=== PATIENT | female | born 1930 | race Two or more races ===

== ENCOUNTER 2017-06-15 11:02 | Outpatient (CLI) | payer MEDICARE, OTHER | END 2017-06-15 23:59 | disposition home or self-care (01) | LOC: RAD 11:02 | PROVIDERS: ATTEND Family Medicine | DX: M47.896 Other spondylosis, lumbar region (principal); M47.897 Other spondylosis, lumbosacral region; M25.551 Pain in right hip; M25.552 Pain in left hip; Z96.643 Presence of artificial hip joint, bilateral | CPT/HCPCS: 73502 ==